=== PATIENT | male | born 1965 | race African-American/Black ===

== ENCOUNTER 2017-11-29 19:06 | Emergency (ER) | payer SELFPAY ==
[~2017-11-29] VITALS: Ht 177.8 cm; Wt 100.0 kg
[2017-11-29 20:38] VITALS: BP 131/61; PULSE 72; RESP 18; TEMP 98.3; O2SAT 99
[2017-11-29] MEDS ORDERED: TAMS5CAP PO (21:54)
[2017-11-29] MEDS ORDERED: HYDR2.5%T RECTAL (21:59)
--- NOTE | 2017-11-29 22:05 | PD ---
HPI Chief Complaint: Complaint Time Seen by Provider: 21:45 Travel History International Travel<30 days: No Contact w/Intl Traveler<30days: No Traveled to known affect area: No History of Present Illness HPI 52-year-old black male presents emergency department requesting evaluation of an elevated PSA as well as some irritation by his anus. He states that he was just released from nursing home 3 weeks ago. He had been under the care of the doctor at the nursing home for over 9 months. He had been on Flomax. He had his PSA checked several times. Initially it was 4.6 then went down to nearly 4 but went back up again the 4.9. Patient is currently taking Flomax. He has not followed up with a urologist after his discharge. He now states that he has irritation by his anus and itching. He denies any urethral discharge. No rashes or lesions. He denies any increased frequency or discharge. Symptoms are mild. No alleviating factors. No exacerbating factor. PFSH Past Medical History Narrative Medical Elevated PSA Medical other: Yes ("PROSTATE") Tetanus Vaccination: < 5 Years Past Surgical History Surgical History: No Previous Surgery Social History Alcohol Use: No Tobacco Use: Yes (1 PPD) Substance Use: No Allergies-Medications (Allergen,Severity, Reaction): Coded Allergies: No Known Allergies (Unverified , 11/29/17) Reported Meds & Prescriptions Reported Meds & Active Scripts Active Anusol-Hc Rectal (Hydrocortisone Rectal) 2.5% Cream 1 Applic RECTAL QID Reported Flomax (Tamsulosin HCl) Unknown Strength Cap Unknown Dose PO HS Review of Systems Except as stated in HPI: all other systems reviewed are Neg Physical Exam Narrative GENERAL: This is a well-nourished, well-developed patient, in no apparent distress. Patient is examined in the presence of the nurse. SKIN: No rashes, ecchymoses or lesions. Warm and dry. HEAD: Atraumatic. Normocephalic. EYES: PERRL, EOMI, no discharge or injection. No scleral icterus. EARS: Clear NOSE: Nasal turbinates appear normal. THROAT: Mucosa pink and moist. Airway patent. NECK: Trachea midline. supple, moves head freely. LUNGS: Clear to auscultation. CV: Regular in rhythm. ABDOMEN: Soft nontender. EXT: No clubbing cyanosis or edema. Rectal: Patient has hemorrhoids but I do not see any thrombosis. There is no obvious abscess or signs of infection. There is no pain in the anus. Data Data Last Documented VS Vital Signs Date Time Temp Pulse Resp B/P (MAP) Pulse Ox O2 Delivery O2 Flow Rate FiO2 11/29/17 20:38 98.3 72 18 131/61 (84) 99 Orders Orders Ed Discharge Order (11/29/17 21:58) MDM Medical Decision Making Medical Screen Exam Complete: Yes Emergency Medical Condition: Yes Medical Record Reviewed: Yes Differential Diagnosis Differential diagnosis: Prostatitis, BPH, prostate cancer, hemorrhoids Narrative Course Patient's exam reveals external hemorrhoids without obvious thrombosis. Patient will be given Anusol cream as well as advised to follow-up with a urologist. He is aware that he needs further PSA testing as well as possibly an ultrasound and biopsy. Patient verbally states understanding. He is given information regarding the [facility]. This is hemorrhoids, history of elevated PSA Diagnosis Primary Impression: Hemorrhoids Additional Impression: History of elevated PSA Patient Instructions: General Instructions Additional Instructions: Rest. Increase fluids. Anusol. Sitz bath 3 times daily. Follow-up with the [facility] within 1 week. Follow-up with a urologist for repeat PSA, ultrasound and possible biopsy for abnormally elevated PSA. Return to the ER for emergencies. Med/Other Pt SpecificInfo: Prescription(s) given Scripts Hydrocortisone Rectal (Anusol-Hc Rectal) 2.5% Cream 1 APPLIC RECTAL QID for Itching/Inflammation, #30 GM 0 Refills Prov: Marc Pak MD 11/29/17 Disposition: 01 DISCHARGE HOME Condition: Stable Dat [place] Nov 29, 2017 22:05
== END 2017-11-29 22:27 | disposition home or self-care (01) ==
LOC: NEPD 19:06
DX: K64.4 Residual hemorrhoidal skin tags (principal); R97.20 Elevated prostate specific antigen [PSA]; F17.200 Nicotine dependence, unspecified, uncomplicated
CPT/HCPCS: 99283